=== PATIENT | male | born 1975 | race Caucasian/White ===

== ENCOUNTER 2022-11-22 15:25 | Emergency (ER) | payer OTHER ==
[2022-11-22 15:32] VITALS: TEMP 97.2
[2022-11-22 16:02] LABS: Glucose,Whole Blood 471 mg/dL (70-110)
[2022-11-22 16:20] LABS: Basophils % (A) 0 %; Eosinophils # (A) 0.2 k/uL (0-0.7); Eosinophils % (A) 2 %; HCT 42.3 % (39.0-53.0); HGB 14.2 gm/dL (13.0-17.5); Lymphocytes # (A) 1.8 k/uL (1.0-4.8); Lymphocytes % (A) 16 %; MCHC 33.6 g/dL (31.0-37.0); MCV 83.3 fL (80.0-100.0); Mean Platelet Volume 7.3; Monocytes # (A) 0.5 k/uL (0-1.0); Monocytes % (A) 5 %; Neutrophils # (A) 8.3 k/uL (1.3-7.7); Neutrophils % (A) 76 %; Platelet Count 276 k/uL (150-450); RBC 5.08 m/uL (4.30-5.90); RDW 13.4 % (11.5-15.5); WBC 10.9 k/uL (3.8-10.6)
--- NOTE | 2022-11-22 16:29 | XR ---
EXAMINATION TYPE: XR chest 2V DATE OF EXAM: 11/22/2022 COMPARISON: None HISTORY: 47 year-old male chest pain TECHNIQUE: PA and lateral views FINDINGS: The cardiomediastinal silhouette, aorta, and pulmonary vasculature are within normal limits. Mild hyp erinflation. Otherwise, lungs and pleural spaces are clear. IMPRESSION: Mild hyperinflation may relate to depth of inspiration or underlying emphysema. Otherwise, no acute c ardiopulmonary process.
[2022-11-22 16:35] LABS: ALT 12 U/L (4-49); AST 14 U/L (17-59); African American GFR (CKD) >90 (>60 ml/min/1.73 sqM); Albumin 2.8 g/dL (3.5-5.0); Alkaline Phosphatase 142 U/L (38-126); Anion Gap 2 mmol/L; Blood Urea Nitrogen 14 mg/dL (9-20); Calcium 8.2 mg/dL (8.4-10.2); Carbon Dioxide 34 mmol/L (22-30); Chloride 94 mmol/L (98-107); Glucose 406 mg/dL (74-99); Lipase 75 U/L (23-300); Magnesium 1.8 mg/dL (1.6-2.3); Non-African American GFR(CKD) >90 (>60 ml/min/1.73 sqM); Potassium 3.4 mmol/L (3.5-5.1); Sodium 130 mmol/L (137-145); Total Bilirubin 0.4 mg/dL (0.2-1.3); Total Protein 5.6 g/dL (6.3-8.2)
--- NOTE | 2022-11-22 16:36 | ED ---
General Adult HPI - General Chief complaint: Recheck/Abnormal Lab/Rx Stated complaint: Hyperglycemia,HTN,Sent by PCP Time Seen by Provider: 11/22/22 15:32 Source: patient Mode of arrival: ambulatory Limitations: no limitations - History of Present Illness Initial comments: This is a 47-year-old male with a past medical history including diabetes and hypertension presented to the emergency department for high blood sugars and blood pressure control issues. The patient was sent in by his private care physician office. The patient stated that he has been having "circumstances that do not allow him to have the best diet" and stated that his sugars have been out of control lately. It is reported the patient's sugars were over 400 in the office and he was advised to go to the emergency department for laboratory workup and fluids. The patient however denied any acute pain or distress and denied any nausea and vomiting. The patient was resting in bed comfortably. - Related Data Home Medications Medication Instructions Recorded Confirmed Albuterol Inhaler [Ventolin Hfa 2 puff INHALATION RT-Q6H PRN 11/22/22 11/22/22 Inhaler] Atorvastatin [Lipitor] 20 mg PO DAILY 11/22/22 11/22/22 Ergocalciferol (Vitamin D2) 1,250 mcg PO LOPEZ 11/22/22 11/22/22 [Drisdol (50,000 Iu)] Glimepiride [Amaryl] 4 mg PO DAILY 11/22/22 11/22/22 Insulin Glargine,Hum.rec.anlog 20 units SQ HS 11/22/22 11/22/22 [Lantus Solostar Pen] amLODIPine [Norvasc] 10 mg PO DAILY 11/22/22 11/22/22 lisinopriL 30 mg PO DAILY 11/22/22 11/22/22 metFORMIN HCL 1,000 mg PO BID 11/22/22 11/22/22 Allergies Allergy/AdvReac Type Severity Reaction Status Date / Time dulaglutide [From [facility]] Allergy Unknown Verified 11/22/22 16:43 Review of Systems ROS Statement: Those systems with pertinent positive or pertinent negative responses have been documented in the HPI. ROS Other: All systems not noted in ROS Statement are negative. Past Medical History Past Medical History: Diabetes Mellitus, Hypertension Additional Past Medical History / Comment(s): High cholestrol History of Any Multi-Drug Resistant Organisms: None Reported Additional Past Surgical History / Comment(s): oral surgery x 2. eye surgery x 2 Past Psychological History: No Psychological Hx Reported Smoking Status: Current every day smoker Past Alcohol Use History: None Reported Past Drug Use History: None Reported General Exam Limitations: no limitations General appearance: alert, in no apparent distress, obese Head exam: Present: atraumatic, normocephalic, normal inspection Eye exam: Present: normal appearance, PERRL Pupils: Present: normal accommodation ENT exam: Present: normal exam, normal oropharynx, mucous membranes moist Neck exam: Present: normal inspection, full ROM Respiratory exam: Present: normal lung sounds bilaterally Cardiovascular Exam: Present: regular rate, normal rhythm, normal heart sounds GI/Abdominal exam: Present: soft, normal bowel sounds Extremities exam: Present: normal inspection, full ROM, normal capillary refill Back exam: Present: normal inspection, full ROM Neurological exam: Present: alert, oriented X3, CN II-XII intact Psychiatric exam: Present: normal affect, normal mood Skin exam: Present: warm, dry Course Vital Signs 11/22/22 11/22/22 11/22/22 15:26 18:00 19:00 Temperature 97.2 F L Pulse Rate 93 Respiratory 18 18 Rate Blood Pressure 180/108 187/124 184/112 O2 Sat by Pulse 98 98 Oximetry 11/22/22 20:16 Temperature Pulse Rate 91 Respiratory 15 Rate Blood Pressure 166/78 O2 Sat by Pulse 99 Oximetry EKG Findings - EKG Comments: EKG Findings:: An EKG was obtained and was interpreted by myself showing a rate of 90, TN interval 130, QRS duration 96 and QTC of 44. This EKG showed a normal sinus rhythm with no ST segment elevation or depression noted. Medical Decision Making - Medical Decision Making Was pt. sent in by a medical professional or institution (, PA, BARREL INSPECTOR, urgent care, hospital, or fpc...) When possible be specific @ -Yes, patient's PCP Did you speak to anyone other than the patient for history (EMS, parent, family, police, friend...)? What history was obtained from this source @ -No Did you review nursing and triage notes (agree or disagree)? Why? @ -I reviewed and agree with nursing and triage notes Were old charts reviewed (outside hosp., previous admission, EMS record, old EKG, old radiological studies, urgent care reports/EKG's, fpc records)? Report findings @ -No old charts were reviewed Differential Diagnosis (chest pain, altered mental status, abdominal pain women, abdominal pain men, vaginal bleeding, weakness, fever, dyspnea, syncope, head ache, dizziness, GI bleed, back pain, seizure, CVA, palpatations, mental health)? @ -Hyperglycemia, HHS, acute coronary syndrome, hypertension, EKG interpreted by me (3pts min.). @ -As above X-rays interpreted by me (1pt min.). @ -Chest x-ray was obtained and was interpreted by myself showing no acute process. CT interpreted by me (1pt min.). @ -None done U/S interpreted by me (1pt. min.). @ -None done What testing was considered but not performed or refused? (CT, X-rays, U/S, labs)? Why? @ -None What meds were considered but not given or refused? Why? @ -None Did you discuss the management of the patient with other professionals (professionals i.e. , PA, BARREL INSPECTOR, lab, RT, psych nurse, perinatal social worker, correctional treatment specialist, teacher, medical officer psychiatry, showcase trimmer)? Give summary @ -No Was smoking cessation discussed for >3mins.? @ -Yes Was critical care preformed (if so, how long)? @ -No Were there social determinants of health that impacted care today? How? (Homelessness, low income, unemployed, alcoholism, drug addiction, transportation, low edu. Level, literacy, decrease access to med. care, senior care, rehab)? @ -No Was there de-escalation of care discussed even if they declined (Discuss DNR or withdrawal of care, Hospice)? DNR status @ -No What co-morbidities impacted this encounter? (DM, HTN, Smoking, COPD, CAD, Cancer, CVA, ARF, Chemo, Hep., AIDS, mental health diagnosis, sleep apnea, morbid obesity)? @ -Hypertension, diabetes Was patient admitted / discharged? Hospital course, mention meds given and route, prescriptions, significant lab abnormalities, going to OR and other pertinent info. @ -The patient was seen and evaluated emergency department. Physical exam, the patient was resting in bed without any acute distress. Vital signs were stable. Laboratory workup did show hyperglycemia and hypertension. The patient received 2 L of normal saline fluid and the glucose did decrease to 350. The patient stated that he didn't want to leave and did not want to wait any fur ther. The patient also received labetalol and his pressure did decrease. The patient was advised to follow-up with his primary care physician who stated that they would be calling him in the morning to follow-up. The patient was advised to try and change his diet to the best of his abilities in order to help his blood sugar. The patient was also advised report back to the emergency department if his pain or symptoms became acutely worse. The patient was agreeable to this and was discharged home in stable condition. The patient's hypo-a tree meal was secondary to the patient's hyperglycemia and this was corrected however no repeat laboratory workup was obtained this time as the patient stated that he was ready to go home and did not want to wait any further. Undiagnosed new problem with uncertain prognosis? @ -No Drug Therapy requiring intensive monitoring for toxicity (Heparin, Nitro, Insulin, Cardizem)? @ -No Were any procedures done? @ -No Diagnosis/symptom? @ -Uncontrolled hypertension Acute, or Chronic, or Acute on Chronic? @ -Acute on chronic Uncomplicated (without systemic symptoms) or Complicated (systemic symptoms)? @ -Uncomplicated Side effects of treatment? @ -No Exacerbation, Progression, or Severe Exacerbation? @ -No Poses a threat to life or bodily function? How? (Chest pain, [place], [place], pneumonia, PE, COPD, DKA, ARF, appy, cholecystitis, CVA, Diverticulitis, Homicidal, Suicidal, threat to staff... and all critical care pts) @ -No Diagnosis/symptom? @ -Hyperglycemia and diabetes Acute, or Chronic, or Acute on Chronic? @ -Acute on chronic Uncomplicated (without systemic symptoms) or Complicated (systemic symptoms)? @ -Uncomplicated Side effects of treatment? @ -none Exacerbation, Progression, or Severe Exacerbation] @ -no Poses a threat to life or bodily function? @ -no - Lab Data Result diagrams: 11/22/22 16:09 11/22/22 16:09 Lab Results 11/22/22 11/22/22 11/22/22 Range/Units 15:50 16:09 16:09 WBC 10.9 H (3.8-10.6) k/uL RBC 5.08 (4.30-5.90) m/uL Hgb 14.2 (13.0-17.5) gm/dL Hct 42.3 (39.0-53.0) % MCV 83.3 (80.0-100.0) fL MCH 28.0 (25.0-35.0) pg MCHC 33.6 (31.0-37.0) g/dL RDW 13.4 (11.5-15.5) % Plt Count 276 (150-450) k/uL MPV 7.3 Neutrophils % 76 % Lymphocytes % 16 % Monocytes % 5 % Eosinophils % 2 % Basophils % 0 % Neutrophils # 8.3 H (1.3-7.7) k/uL Lymphocytes # 1.8 (1.0-4.8) k/uL Monocytes # 0.5 (0-1.0) k/uL Eosinophils # 0.2 (0-0.7) k/uL Basophils # 0.0 (0-0.2) k/uL Sodium 130 L (137-145) mmol/L Potassium 3.4 L (3.5-5.1) mmol/L Chloride 94 L (98-107) mmol/L Carbon Dioxide 34 H (22-30) mmol/L Anion Gap 2 mmol/L BUN 14 (9-20) mg/dL Creatinine 0.71 (0.66-1.25) mg/dL Est GFR (CKD-EPI)AfAm >90 (>60 ml/min/1.73 sqM) Est GFR (CKD-EPI)NonAf >90 (>60 ml/min/1.73 sqM) Glucose 406 H (74-99) mg/dL POC Glucose (mg/dL) 471 H (70-110) mg/dL POC Glu [employer] Salesperson ID Evelyn Clemons Calcium 8.2 L (8.4-10.2) mg/dL Magnesium 1.8 (1.6-2.3) mg/dL Total Bilirubin 0.4 (0.2-1.3) mg/dL AST 14 L (17-59) U/L ALT 12 (4-49) U/L Alkaline Phosphatase 142 H (38-126) U/L Troponin I (0.000-0.034) ng/mL NT-Pro-B Natriuret Pep pg/mL Total Protein 5.6 L (6.3-8.2) g/dL Albumin 2.8 L (3.5-5.0) g/dL Lipase 75 (23-300) U/L Urine Color Urine Appearance (Clear) Urine pH (5.0-8.0) Ur Specific [place] (1.001-1.035) Urine Protein (Negative) Urine Glucose (UA) (Negative) Urine Ketones (Negative) Urine Blood (Negative) Urine Nitrite (Negative) Urine Bilirubin (Negative) Urine Urobilinogen (<2.0) mg/dL Ur Leukocyte Esterase (Negative) Urine RBC (0-5) /hpf Urine WBC (0-5) /hpf Influenza Type A (PCR) (Not Detectd) Influenza Type B (PCR) (Not Detectd) RSV (PCR) (Not Detectd) SARS-CoV-2 (PCR) (Not Detectd) 11/22/22 11/22/22 11/22/22 Range/Units 16:09 16:09 16:09 WBC (3.8-10.6) k/uL RBC (4.30-5.90) m/uL Hgb (13.0-17.5) gm/dL Hct (39.0-53.0) % MCV (80.0-100.0) fL MCH (25.0-35.0) pg MCHC (31.0-37.0) g/dL RDW (11.5-15.5) % Plt Count (150-450) k/uL MPV Neutrophils % % Lymphocytes % % Monocytes % % Eosinophils % % Basophils % % Neutrophils # (1.3-7.7) k/uL Lymphocytes # (1.0-4.8) k/uL Monocytes # (0-1.0) k/uL Eosinophils # (0-0.7) k/uL Basophils # (0-0.2) k/uL Sodium (137-145) mmol/L Potassium (3.5-5.1) mmol/L Chloride (98-107) mmol/L Carbon Dioxide (22-30) mmol/L Anion Gap mmol/L BUN (9-20) mg/dL Creatinine (0.66-1.25) mg/dL Est GFR (CKD-EPI)AfAm (>60 ml/min/1.73 sqM) Est GFR (CKD-EPI)NonAf (>60 ml/min/1.73 sqM) Glucose (74-99) mg/dL POC Glucose (mg/dL) (70-110) mg/dL POC Glu [employer] Salesperson ID Calcium (8.4-10.2) mg/dL Magnesium (1.6-2.3) mg/dL Total Bilirubin (0.2-1.3) mg/dL AST (17-59) U/L ALT (4-49) U/L Alkaline Phosphatase (38-126) U/L Troponin I 0.029 (0.000-0.034) ng/mL NT-Pro-B Natriuret Pep 1130 pg/mL Total Protein (6.3-8.2) g/dL Albumin (3.5-5.0) g/dL Lipase (23-300) U/L Urine Color Urine Appearance (Clear) Urine pH (5.0-8.0) Ur Specific [place] (1.001-1.035) Urine Protein (Negative) Urine Glucose (UA) (Negative) Urine Ketones (Negative) Urine Blood (Negative) Urine Nitrite (Negative) Urine Bilirubin (Negative) Urine Urobilinogen (<2.0) mg/dL Ur Leukocyte Esterase (Negative) Urine RBC (0-5) /hpf Urine WBC (0-5) /hpf Influenza Type A (PCR) Not Detected (Not Detectd) Influenza Type B (PCR) Not Detected (Not Detectd) RSV (PCR) Not Detected (Not Detectd) SARS-CoV-2 (PCR) Not Detected (Not Detectd) 11/22/22 11/22/22 11/22/22 Range/Units 17:40 17:57 20:06 WBC (3.8-10.6) k/uL RBC (4.30-5.90) m/uL Hgb (13.0-17.5) gm/dL Hct (39.0-53.0) % MCV (80.0-100.0) fL MCH (25.0-35.0) pg MCHC (31.0-37.0) g/dL RDW (11.5-15.5) % Plt Count (150-450) k/uL MPV Neutrophils % % Lymphocytes % % Monocytes % % Eosinophils % % Basophils % % Neutrophils # (1.3-7.7) k/uL Lymphocytes # (1.0-4.8) k/uL Monocytes # (0-1.0) k/uL Eosinophils # (0-0.7) k/uL Basophils # (0-0.2) k/uL Sodium (137-145) mmol/L Potassium (3.5-5.1) mmol/L Chloride (98-107) mmol/L Carbon Dioxide (22-30) mmol/L Anion Gap mmol/L BUN (9-20) mg/dL Creatinine (0.66-1.25) mg/dL Est GFR (CKD-EPI)AfAm (>60 ml/min/1.73 sqM) Est GFR (CKD-EPI)NonAf (>60 ml/min/1.73 sqM) Glucose (74-99) mg/dL POC Glucose (mg/dL) 337 H 354 H (70-110) mg/dL POC Glu [employer] Salesperson ID Evelyn Clemons Matthew Calcium (8.4-10.2) mg/dL Magnesium (1.6-2.3) mg/dL Total Bilirubin (0.2-1.3) mg/dL AST (17-59) U/L ALT (4-49) U/L Alkaline Phosphatase (38-126) U/L Troponin I (0.000-0.034) ng/mL NT-Pro-B Natriuret Pep pg/mL Total Protein (6.3-8.2) g/dL Albumin (3.5-5.0) g/dL Lipase (23-300) U/L Urine Color Light Yellow Urine Appearance Clear (Clear) Urine pH 6.5 (5.0-8.0) Ur Specific [place] 1.033 (1.001-1.035) Urine Protein 3+ H (Negative) Urine Glucose (UA) 4+ H (Negative) Urine Ketones Negative (Negative) Urine Blood Trace H (Negative) Urine Nitrite Negative (Negative) Urine Bilirubin Negative (Negative) Urine Urobilinogen <2.0 (<2.0) mg/dL Ur Leukocyte Esterase Negative (Negative) Urine RBC 3 (0-5) /hpf Urine WBC 3 (0-5) /hpf Influenza Type A (PCR) (Not Detectd) Influenza Type B (PCR) (Not Detectd) RSV (PCR) (Not Detectd) SARS-CoV-2 (PCR) (Not Detectd) Disposition Clinical Impression: Hyperglycemia, Hypertensive urgency Disposition: HOME SELF-CARE Condition: Stable Is patient prescribed a controlled substance at d/c from ED?: No Referrals: Tierra Reeves MD [Primary Care Provider] - 1-2 days Time of Disposition: 20:20
[2022-11-22] MEDS ORDERED: SODIUM CHLORIDE 0.9% 1,000 ML IV ONE ×2 (17:02→18:01)
[2022-11-22 17:58] LABS: Glucose,Whole Blood 337 mg/dL (70-110)
[2022-11-22] MEDS ORDERED: LABETALOL 5 MG/ML VIAL MDV IVP STA (18:01)
[2022-11-22 18:50] LABS: Appearance,Urine Clear (Clear); Bilirubin,Urine Negative (Negative); Blood,Urine Trace (Negative); Color,Urine Light Yellow; Glucose,Urine (UA) 4+ (Negative); Ketones,Urine Negative (Negative); Leukocyte Esterase,Urine Negative (Negative); Nitrite,Urine Negative (Negative); PH, Urine 6.5 (5.0-8.0); Protein,Urine 3+ (Negative); RBC,Urine 3 /hpf (0-5); Specific Gravity,Urine 1.033 (1.001-1.035); Urobilinogen,Urine <2.0 mg/dL (<2.0); WBC,Urine 3 /hpf (0-5)
[2022-11-22 20:09] LABS: Glucose,Whole Blood 354 mg/dL (70-110)
[2022-11-22 20:17] VITALS: BP 166/78; PULSE 91; RESP 15
== END 2022-11-22 20:50 | disposition home or self-care (01) ==
LOC: EC 15:25
DX: E11.65 Type 2 diabetes mellitus with hyperglycemia (principal); I16.0 Hypertensive urgency; F17.200 Nicotine dependence, unspecified, uncomplicated; Z88.8 Allergy status to other drugs, medicaments and biological substances; Z79.4 Long term (current) use of insulin; Z79.84 Long term (current) use of oral hypoglycemic drugs; Z79.899 Other long term (current) drug therapy; Z20.822 Contact with and (suspected) exposure to COVID-19
CPT/HCPCS: 36415; 71046; 80053; 81001; 83690; 83735; 83880; 84484; 85025; 87636; 93005; 96361; 96374; 99285

== ENCOUNTER 2023-02-21 12:27 | Inpatient (IN) | payer MEDICAID, OTHER ==
--- NOTE | 2023-02-21 13:11 | ED ---
Psych HPI - General Chief Complaint: Psychiatric Symptoms Stated Complaint: Mental Health Time Seen by Provider: 02/21/23 12:50 Source: patient, EMS, RN notes reviewed Mode of arrival: EMS - History of Present Illness Initial Comments: 48-year-old male with a history of smoking history of hypertension and high cholesterol who is currently in the [facility] and was found unconscious with a T-shirt wrapped around his neck. He does admit to trying to commit suicide he admits to feeling depressed and wishes someone would just shoot him. He states he is been feeling depressed for a while due to life situations. He states he try to kill himself about a month ago with alcohol and tramadol but this was unsuccessful. He currently is awake alert oriented 4 complains of some mild neck discomfort but otherwise has no complaints at this time. MD Complaint: suicidal ideation, feels depressed, other - Related Data Home Medications Medication Instructions Recorded Confirmed Albuterol Inhaler [Ventolin Hfa 2 puff INHALATION RT-Q6H PRN 11/22/22 02/21/23 Inhaler] Atorvastatin [Lipitor] 20 mg PO DAILY 11/22/22 02/21/23 Ergocalciferol (Vitamin D2) 1,250 mcg PO LOPEZ 11/22/22 02/21/23 [Drisdol (50,000 Iu)] Glimepiride [Amaryl] 4 mg PO DAILY 11/22/22 02/21/23 Insulin Glargine,Hum.rec.anlog 20 units SQ HS 11/22/22 02/21/23 [Lantus Solostar Pen] amLODIPine [Norvasc] 10 mg PO DAILY 11/22/22 02/21/23 lisinopriL 30 mg PO DAILY 11/22/22 02/21/23 metFORMIN HCL 1,000 mg PO BID 11/22/22 02/21/23 Allergies Allergy/AdvReac Type Severity Reaction Status Date / Time dulaglutide [[facility] Allergy Unknown Verified 02/21/23 14:36 Review of Systems ROS Statement: Those systems with pertinent positive or pertinent negative responses have been documented in the HPI. ROS Other: All systems not noted in ROS Statement are negative. Past Medical History Past Medical History: Diabetes Mellitus, Hypertension Additional Past Medical History / Comment(s): High cholestrol History of Any Multi-Drug Resistant Organisms: None Reported Additional Past Surgical History / Comment(s): oral surgery x 2. eye surgery x 2 Past Psychological History: No Psychological Hx Reported Smoking Status: Current every day smoker Past Alcohol Use History: None Reported Past Drug Use History: None Reported General Exam - General Exam Comments Initial Comments: This is a well-developed well-nourished awake alert oriented 4 male Limitations: no limitations General appearance: alert, in no apparent distress Head exam: Present: atraumatic, normocephalic, normal inspection Eye exam: Present: normal appearance, PERRL, EOMI. Absent: scleral icterus, conjunctival injection, periorbital swelling ENT exam: Present: normal exam, mucous membranes moist Neck exam: Present: normal inspection, full ROM, other (ALLERGY or bruits no overt tenderness on palpation no midline tenderness). Absent: tenderness, meningismus, lymphadenopathy Respiratory exam: Present: normal lung sounds bilaterally. Absent: respiratory distress, wheezes, rales, rhonchi, stridor Cardiovascular Exam: Present: regular rate, normal rhythm, normal heart sounds. Absent: systolic murmur, diastolic murmur, rubs, gallop, clicks GI/Abdominal exam: Present: soft, normal bowel sounds. Absent: distended, tenderness, guarding, rebound, rigid Extremities exam: Present: normal inspection, full ROM, normal capillary refill. Absent: tenderness, pedal edema, joint swelling, calf tenderness Back exam: Present: normal inspection Neurological exam: Present: alert, oriented X3, CN II-XII intact Psychiatric exam: Present: depressed, flat affect, suicidal ideation Skin exam: Present: warm, dry, intact, normal color. Absent: rash Course Vital Signs 02/21/23 12:45 Temperature 98.5 F Pulse Rate 100 Respiratory 16 Rate Blood Pressure 174/97 O2 Sat by Pulse 92 L Oximetry Medical Decision Making - Medical Decision Making Patient presents with suicidal thoughts and ideation and attempt to strangle himself with his shirt. He does demonstrate in addition to this hypokalemia and hyper glycemia. He admitted for inpatient evaluation and treatment. Covid 19 teslas been ordered. Patient was given a dose of insulin as well as a dose of potassium. Further medications can be ordered by consultation of medicine on the floor.Was pt. sent in by a medical professional or institution (, PA, SHIPPING [employer] RECEIVING [employer]IGHER, urgent care, hospital, or [place] health care facility...) When possible be specific @ -No Did you speak to anyone other than the patient for history (EMS, parent, family, police, friend...)? What history was obtained from this source @ -Paramedics Did you review nursing and triage notes (agree or disagree)? Why? @ -I reviewed and agree with nursing and triage notes Were old charts reviewed (outside hosp., previous admission, EMS record, old EKG, old radiological studies, urgent care reports/EKG's, [place] health care facility records)? Report findings @ -No old charts were reviewed Differential Diagnosis (chest pain, altered mental status, abdominal pain women, abdominal pain men, vaginal bleeding, weakness, fever, dyspnea, syncope, headache, dizziness, GI bleed, back pain, seizure, CVA, palpatations, mental health, musculoskeletal)? @ -Depression, suicidal ideation, suicide attempt, attempted strangulation EKG interpreted by me (3pts min.). @ - X-rays interpreted by me (1pt min.). @ -Imaging interpreted by me negative with respect to the soft tissue neck and chest x-ray CT interpreted by me (1pt min.). @ -None done U/S interpreted by me (1pt. min.). @ -None done What testing was considered but not performed or refused? (CT, X-rays, U/S, labs)? Why? @ -None What meds were considered but not given or refused? Why? @ -None Did you discuss the management of the patient with other professionals (professionals i.e. , PA, SHIPPING AND RECEIVING WEIGHER, lab, RT, psych nurse, 7th grade social studies teacher, size changer, teacher, upscale security officer, oil field caser)? Give summary @ -EPS service Was smoking cessation discussed for >3mins.? @ -No Was critical care preformed (if so, how long)? @ -No Were there social determinants of health that impacted care today? How? (Homelessness, low income, unemployed, alcoholism, drug addiction, transportation, low edu. Level, literacy, decrease access to med. care, fpc, rehab)? @ -No Was there de-escalation of care discussed even if they declined (Discuss DNR or withdrawal of care, Hospice)? DNR status @ -No What co-morbidities impacted this encounter? (DM, HTN, Smoking, COPD, CAD, Cancer, CVA, ARF, Chemo, Hep., AIDS, mental health diagnosis, sleep apnea, morbid obesity)? @ -Diabetes Was patient admitted / discharged? Hospital course, mention meds given and route, prescriptions, significant lab abnormalities, going to OR and other pertinent info. @ -hospital course patient was admitted to the psychiatric unit for inpatient evaluation treatment of suicidal attempt suicidal thought depression Undiagnosed new problem with uncertain prognosis? @ -No Drug Therapy requiring intensive monitoring for toxicity (Heparin, Nitro, Insulin, Cardizem)? @ -No Were any procedures done? @ -No Diagnosis/symptom? @ -Major depression, suicidal ideation, suicide attempt, attempted strangulation, hyperglycemia, acute anemia Acute, or Chronic, or Acute on Chronic? @ -Acute Uncomplicated (without systemic symptoms) or Complicated (systemic symptoms)? @ -default Side effects of treatment? @ -No Exacerbation, Progression, or Severe Exacerbation? @ -No Poses a threat to life or bodily function? How? (Chest pain, USA, VA, pneumonia, PE, COPD, DKA, ARF, appy, cholecystitis, CVA, Diverticulitis, Homicidal, Suicidal, threat to staff... and all critical care pts) @ -Depression, suicidal ideation and attempt - Lab Data Result diagrams: 02/21/23 14:03 02/21/23 13:55 Lab Results 02/21/23 02/21/23 02/21/23 Range/Units 13:55 13:55 14:03 WBC 12.1 H (3.8-10.6) k/uL RBC 5.25 (4.30-5.90) m/uL Hgb 15.5 (13.0-17.5) gm/dL Hct 43.1 (39.0-53.0) % MCV 82.2 (80.0-100.0) fL MCH 29.6 (25.0-35.0) pg MCHC 36.0 (31.0-37.0) g/dL RDW 13.2 (11.5-15.5) % Plt Count 290 (150-450) k/uL MPV 7.4 Neutrophils % 86 % Lymphocytes % 9 % Monocytes % 4 % Eosinophils % 1 % Basophils % 0 % Neutrophils # 10.3 H (1.3-7.7) k/uL Lymphocytes # 1.1 (1.0-4.8) k/uL Monocytes # 0.5 (0-1.0) k/uL Eosinophils # 0.1 (0-0.7) k/uL Basophils # 0.0 (0-0.2) k/uL Sodium 130 L (137-145) mmol/L Potassium 3.3 L (3.5-5.1) mmol/L Chloride 93 L (98-107) mmol/L Carbon Dioxide 31 H (22-30) mmol/L Anion Gap 6 mmol/L BUN 11 (9-20) mg/dL Creatinine 0.69 (0.66-1.25) mg/dL Est GFR (CKD-EPI)AfAm >90 (>60 ml/min/1.73 sqM) Est GFR (CKD-EPI)NonAf >90 (>60 ml/min/1.73 sqM) Glucose 323 H (74-99) mg/dL POC Glucose (mg/dL) (70-110) mg/dL POC Glu Earth Auger Operator ID Calcium 8.6 (8.4-10.2) mg/dL Total Bilirubin 0.5 (0.2-1.3) mg/dL AST 17 (17-59) U/L ALT 14 (4-49) U/L Alkaline Phosphatase 157 H (38-126) U/L Creatine Kinase 64 (55-170) U/L Total Protein 5.8 L (6.3-8.2) g/dL Albumin 3.0 L (3.5-5.0) g/dL TSH 0.329 L (0.465-4.680) mIU/L Free T4 1.58 (0.78-2.19) ng/dL Urine Opiates Screen Not Detected (NotDetected) Ur Oxycodone Screen Not Detected (NotDetected) Urine Methadone Screen Not Detected (NotDetected) Ur Propoxyphene Screen Not Detected (NotDetected) Ur Barbiturates Screen Not Detected (NotDetected) U Tricyclic Antidepress Not Detected (NotDetected) Ur Phencyclidine Scrn Not Detected (NotDetected) Ur Amphetamines Screen Not Detected (NotDetected) U Methamphetamines Scrn Not Detected (NotDetected) U Benzodiazepines Scrn Not Detected (NotDetected) Urine Cocaine Screen Not Detected (NotDetected) U Marijuana (THC) Screen Detected H (NotDetected) Serum Alcohol <10 mg/dL 02/21/23 Range/Units 18:49 WBC (3.8-10.6) k/uL RBC (4.30-5.90) m/uL Hgb (13.0-17.5) gm/dL Hct (39.0-53.0) % MCV (80.0-100.0) fL MCH (25.0-35.0) pg MCHC (31.0-37.0) g/dL RDW (11.5-15.5) % Plt Count (150-450) k/uL MPV Neutrophils % % Lymphocytes % % Monocytes % % Eosinophils % % Basophils % % Neutrophils # (1.3-7.7) k/uL Lymphocytes # (1.0-4.8) k/uL Monocytes # (0-1.0) k/uL Eosinophils # (0-0.7) k/uL Basophils # (0-0.2) k/uL Sodium (137-145) mmol/L Potassium (3.5-5.1) mmol/L Chloride (98-107) mmol/L Carbon Dioxide (22-30) mmol/L Anion Gap mmol/L BUN (9-20) mg/dL Creatinine (0.66-1.25) mg/dL Est GFR (CKD-EPI)AfAm (>60 ml/min/1.73 sqM) Est GFR (CKD-EPI)NonAf (>60 ml/min/1.73 sqM) Glucose (74-99) mg/dL POC Glucose (mg/dL) 456 H (70-110) mg/dL POC Glu Earth Auger Operator ID Anita Jeff Calcium (8.4-10.2) mg/dL Total Bilirubin (0.2-1.3) mg/dL AST (17-59) U/L ALT (4-49) U/L Alkaline Phosphatase (38-126) U/L Creatine Kinase (55-170) U/L Total Protein (6.3-8.2) g/dL Albumin (3.5-5.0) g/dL TSH (0.465-4.680) mIU/L Free T4 (0.78-2.19) ng/dL Urine Opiates Screen (NotDetected) Ur Oxycodone Screen (NotDetected) Urine Methadone Screen (NotDetected) Ur Propoxyphene Screen (NotDetected) Ur Barbiturates Screen (NotDetected) U Tricyclic Antidepress (NotDetected) Ur Phencyclidine Scrn (NotDetected) Ur Amphetamines Screen (NotDetected) U Methamphetamines Scrn (NotDetected) U Benzodiazepines Scrn (NotDetected) Urine Cocaine Screen (NotDetected) U Marijuana (THC) Screen (NotDetected) Serum Alcohol mg/dL Disposition Clinical Impression: Depression, Suicidal ideation, Hypokalemia, Hyperglycemia due to diabetes mellitus, Strangulation or suffocation Disposition: TRANSFER TO PSYCH HOSP/UNIT Condition: Stable Referrals: None,Stated [Primary Care Provider] - 1-2 days Decision Date: 02/21/23 Decision Time: 19:04
[2023-02-21 14:08] LABS: Basophils % (A) 0 %; Eosinophils # (A) 0.1 k/uL (0-0.7); Eosinophils % (A) 1 %; HCT 43.1 % (39.0-53.0); HGB 15.5 gm/dL (13.0-17.5); Lymphocytes # (A) 1.1 k/uL (1.0-4.8); Lymphocytes % (A) 9 %; MCH 29.6 pg (25.0-35.0); MCV 82.2 fL (80.0-100.0); Mean Platelet Volume 7.4; Monocytes # (A) 0.5 k/uL (0-1.0); Monocytes % (A) 4 %; Neutrophils # (A) 10.3 k/uL (1.3-7.7); Neutrophils % (A) 86 %; Platelet Count 290 k/uL (150-450); RBC 5.25 m/uL (4.30-5.90); RDW 13.2 % (11.5-15.5); WBC 12.1 k/uL (3.8-10.6)
[2023-02-21 14:27] LABS: ALT 14 U/L (4-49); AST 17 U/L (17-59); African American GFR (CKD) >90 (>60 ml/min/1.73 sqM); Alcohol <10 mg/dL; Alkaline Phosphatase 157 U/L (38-126); Anion Gap 6 mmol/L; Blood Urea Nitrogen 11 mg/dL (9-20); Calcium 8.6 mg/dL (8.4-10.2); Carbon Dioxide 31 mmol/L (22-30); Chloride 93 mmol/L (98-107); Creatine Kinase 64 U/L (55-170); Glucose 323 mg/dL (74-99); Non-African American GFR(CKD) >90 (>60 ml/min/1.73 sqM); Potassium 3.3 mmol/L (3.5-5.1); Sodium 130 mmol/L (137-145); Total Bilirubin 0.5 mg/dL (0.2-1.3); Total Protein 5.8 g/dL (6.3-8.2)
[2023-02-21 14:36] LABS: Amphetamine Screen,Urine Not Detected (NotDetected); Barbiturate Screen,Urine Not Detected (NotDetected); Benzodiazepines Screen,Urine Not Detected (NotDetected); Cocaine Screen,Urine Not Detected (NotDetected); Methadone Screen, Urine Not Detected (NotDetected); Opiate Screen,Urine Not Detected (NotDetected); Oxycodone Screen, Urine Not Detected (NotDetected); Phencyclidine Screen,Urine Not Detected (NotDetected); Tricyclic Antidepressant,Urine Not Detected (NotDetected); Urn Cannabinoid Scrn Detected (NotDetected)
--- NOTE | 2023-02-21 15:05 | XR ---
EXAMINATION TYPE: XR chest 2V DATE OF EXAM: 02/21/2023 2:55 PM COMPARISON: Chest radiographs from 11/22/2022. TECHNIQUE: XR chest 2V Frontal and lateral views of the chest. CLINICAL INDICATION:Male, 48 years old with history of Attempted strangulation; FINDINGS: Lungs/Pleura: There is no evidence of pleural effusion, focal consolidation, or pneumothorax. Pulmonary vascularity: Unremarkable. Heart/mediastinum: Cardiomediastinal silhouette is unremarkable. Musculoskeletal: No acute osseous pathology. IMPRESSION: No acute cardiopulmonary disease/process.
--- NOTE | 2023-02-21 15:06 | XR ---
EXAMINATION TYPE: XR soft tissue neck DATE OF EXAM: 02/21/2023 2:55 PM INDICATION: Patient age:Male; 48 years old; Reason for study: Strangulation; PH[facility]. COMPARISON: None TECHNIQUE: The soft tissues of the neck were imaged in 2 views. FINDINGS: The prevertebral soft tissues are unremarkable. There is no evidence of mass effect or trac heal deviation. No acute osseous abnormality demonstrated. No evidence of subglottic narrowing. Str aightening of the cervical spine which may be due to patient position versus muscle spasm. No radiopa que foreign body. IMPRESSION: No significant abnormality identified within the soft tissues of the neck.
[2023-02-21 15:31] LABS: T4, Free (Free Thyroxine) 1.58 ng/dL (0.78-2.19)
[2023-02-21] MEDS ORDERED: POTASSIUM CHLORIDE ER 20 MEQ TAB.ER PO STA (18:36)
[2023-02-21 18:51] LABS: Glucose,Whole Blood 456 mg/dL (70-110)
[2023-02-21] MEDS ORDERED: INSULIN ASPART (NovoLOG) 100 UNIT/ML VIAL SQ ONE (18:51)
[2023-02-21 21:59] LABS: Glucose,Whole Blood 187 mg/dL (70-110)
[2023-02-22] MEDS ORDERED: ALBUTEROL INHALER 60 PUFF/8 GM INHALER (MHU) INHALATION PRN (02:21)
[2023-02-22] MEDS ORDERED: ACETAMINOPHEN TAB 325 MG TAB PO PRN (02:22)
[2023-02-22] MEDS ORDERED: MAG HYDROX/AL HYDROX/SIMETH 30 ML CUP PO PRN (02:22)
[2023-02-22] MEDS ORDERED: MAGNESIUM HYDROXIDE 2,400 MG/10 ML CUP PO PRN (02:22)
[2023-02-22] MEDS ORDERED: LORazepam 1 MG TAB PO PRN (02:22)
[2023-02-22] MEDS ORDERED: HALOPERIDOL LACTATE 5 MG/ML 1 ML VIAL IM PRN (02:22)
[2023-02-22 07:46] LABS: Glucose,Whole Blood 352 mg/dL (70-110)
[2023-02-22] MEDS: INSULIN ASPART (NovoLOG) 100 UNIT/ML VIAL SQ SCH ×4 (08:23→20:27)
[2023-02-22] MEDS: NICOTINE 14MG/24HR PATCH TRANSDERM SCH (09:26)
[2023-02-22] MEDS: metFORMIN 500 MG TAB PO SCH ×2 (09:27→21:23)
[2023-02-22] MEDS: ATORVASTATIN 20 MG TAB PO SCH (09:27)
[2023-02-22] MEDS: lisinopriL 10 MG TAB PO SCH (09:27)
[2023-02-22] MEDS: amLODIPine 10 MG TAB PO SCH (09:28)
[2023-02-22] MEDS: GLIMEPIRIDE 4 MG TAB PO SCH (09:28)
[2023-02-22] MEDS ORDERED: SERTRALINE 50 MG TAB PO STA (11:13)
[2023-02-22 12:59] LABS: Glucose,Whole Blood 177 mg/dL (70-110)
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
[2023-02-22 17:54] LABS: Glucose,Whole Blood 151 mg/dL (70-110)
[2023-02-22 19:48] LABS: Glucose,Whole Blood 187 mg/dL (70-110)
[2023-02-22] MEDS ORDERED: LOPERAMIDE 2 MG CAP PO PRN (20:09)
[2023-02-22] MEDS: QUEtiapine 100 MG TAB PO SCH (20:37)
[2023-02-22] MEDS: INSULIN DETEMIR (LEVEMIR) 100 UNIT/ML SYR SQ SCH (20:37)
--- NOTE | 2023-02-23 00:35 | P.PN ---
Progress Note - Text Progress Note Date: 02/22/23 patient refused medical evaluation
[2023-02-23 08:00] LABS: Glucose,Whole Blood 92 mg/dL (70-110)
[2023-02-23] MEDS: INSULIN ASPART (NovoLOG) 100 UNIT/ML VIAL SQ SCH ×4 (08:58→20:07)
[2023-02-23] MEDS: NICOTINE 14MG/24HR PATCH TRANSDERM SCH (09:14)
[2023-02-23] MEDS: metFORMIN 500 MG TAB PO SCH ×2 (09:14→20:06)
[2023-02-23] MEDS: ATORVASTATIN 20 MG TAB PO SCH (09:15)
[2023-02-23] MEDS: amLODIPine 10 MG TAB PO SCH (09:15)
[2023-02-23] MEDS: SERTRALINE 100 MG TAB PO SCH (09:15)
[2023-02-23] MEDS: GLIMEPIRIDE 4 MG TAB PO SCH (09:15)
[2023-02-23] MEDS: lisinopriL 10 MG TAB PO SCH (09:17)
--- NOTE | 2023-02-23 11:34 | P.PN ---
Progress Note - Text Progress Note Date: 02/23/23 Interval History: Patient was seen wandering the hallways and was directable and agreeable to speak with insurance underwriter sales in the office. Patient is hyperverbal and speaks in an overly inclusive manner as he describes circumstances leading to current state of mental health. He externalizes often and says that he has been upset about recent breakups, interpersonal relationship with his ex-, and due to his feelings of loneliness. He says he would be glad if someone at work would put a bullet in his head. He endorses good sleep but says his energy has been low. He says that the last time he can recall being happy was in 2016 when he got . At this time patient endorses suicidal ideation but denies homicidal ideations, intent or plan. Patient denies any auditory, visual hallucinations and denies any paranoia or delusions. Patient denies any side effects from the m edications and has been compliant with meds. Mental Status Exam: General Appearance: Patient appears to be stated age is alert, directable, and attempts to cooperate. Patient appears to have fair hygiene and grooming. Behavior: Patient is seated without any agitated behavior. Eye contact is appropriate. Speech: Patient's speech is hyperverbal. Mood/Affect: Patient reports their mood is "depressed," affect is incongruent and appears to be euthymic. Suicidality/Homicidality: Patient is denying any homicidal ideation. He reports suicidal ideation. Perceptions: Patient denies any visual hallucinations and denies any auditory hallucinations Though content/process: There is no evidence of any delusional thought content and thought process is tangential Memory and concentration: AOX3, grossly intact for the purposes of this session. Judgment and insight: Poor Assessment Adjustment disorder with mixed disturbance of mood and conduct Likely bipolar 2 disorder Posttraumatic stress disorder Tobacco use disorder Plan: -Patient is admitted under voluntary status to MHU for stabilization of psychiatric symptoms and safety. Patient signed adult voluntary form and medication consent and is placed in patient's chart. -Medications : Zoloft increased to 100 mg by mouth daily for depression/anxiety/PTSD Continue Seroquel 100 mg by mouth at bedtime for mood augmentation/stabilization -Ativan and Haldol PRN for agitation/aggression -Patient was counselled on substance abuse and desired to cut back on use -Patient was informed of the risks, benefits and side effects of the medication and patient verbally consented to taking the medications. Patient signed med consent form and was placed in chart. -Internal Medicine consult to perform medical evaluation and physical. -NRT - nicotine patch -SW on board for discharge planning. Encourage patient to participate in groups to work on coping skills.
[2023-02-23] MEDS ORDERED: POTASSIUM CHLORIDE ER 20 MEQ TAB.ER PO STA (11:39)
[2023-02-23 12:05] LABS: Glucose,Whole Blood 146 mg/dL (70-110)
[2023-02-23 17:39] LABS: Glucose,Whole Blood 174 mg/dL (70-110)
[2023-02-23 20:06] LABS: Glucose,Whole Blood 209 mg/dL (70-110)
[2023-02-23] MEDS: QUEtiapine 100 MG TAB PO SCH (20:06)
[2023-02-23] MEDS: INSULIN DETEMIR (LEVEMIR) 100 UNIT/ML SYR SQ SCH (20:08)
--- NOTE | 2023-02-24 00:56 | P.MDCNMH ---
History of Present Illness H&P Date: 02/23/23 Chief Complaint: medical eval 48 year old male with DM and hypertension patient was brought in for psych evaluation by law enforcement , he was found unconscious on the court floor with t-shirt wrapped around his neck , he admits to depression and suicidal ideation , he denies any auditory hallucination patient denies any medical concerns at this time, denies fever, chills, cough, URI, chest pain , SOB, nausea vomiting, abd pain or GI bleeding , denies any changes in urinary or bowel habits. patient admits to tobacco smoking , denies iliicit drugs or alcohol Pertinent positives as noted in HPI. All other systems were reviewed and are negative Constitutional: No acute distress, conversant Eyes: Anicteric sclerae, moist conjunctiva, Pupils equal round reactive to light ENMT: NC/AT Oropharynx clear, no erythema, or exudates Neck: Supple, no masses, or JVD No carotid bruits No thyromegaly Lungs: Clear to auscultation Clear to percussion Normal respiratory effort, no accessory muscle use Cardiovascular: Heart regular in rate and rhythm, No murmurs, gallops, or rubs No peripheral edema Abdominal: Soft Nontender, no guarding, rebound or rigidity Abdomen moving with respiration Normoactive bowel sounds Skin: Normal temperature, tone, texture, turgor Extremities: No digital cyanosis No clubbing Pedal pulses intact and symmetrical Radial pulses intact and symmetrical No calf tenderness Psychiatric: Alert and oriented to person, place and time Neuro Muscles Strength 5/5 in all 4 extremities Sensation to light touch grossly present throughout Cranial nerves II-XII grossly intact Lymphatics: no palpable cervical or supraclavicular lymph nodes Past Medical History Past Medical History: Diabetes Mellitus, Hypertension Additional Past Medical History / Comment(s): High cholestrol History of Any Multi-Drug Resistant Organisms: None Reported Additional Past Surgical History / Comment(s): oral surgery x 2. eye surgery x 2 Past Anesthesia/Blood Transfusion Reactions: No Reported Reaction Past Psychological History: No Psychological Hx Reported Smoking Status: Current every day smoker Past Alcohol Use History: None Reported Past Drug Use History: None Reported Medications and Allergies Home Medications Medication Instructions Recorded Confirmed Type Albuterol Inhaler [Ventolin Hfa 2 puff INHALATION RT-Q6H PRN 11/22/22 02/21/23 History Inhaler] Atorvastatin [Lipitor] 20 mg PO DAILY 11/22/22 02/21/23 History Ergocalciferol (Vitamin D2) 1,250 mcg PO LOPEZ 11/22/22 02/21/23 History [Drisdol (50,000 Iu)] Glimepiride [Amaryl] 4 mg PO DAILY 11/22/22 02/21/23 History Insulin Glargine,Hum.rec.anlog 20 units SQ HS 11/22/22 02/21/23 History [Lantus Solostar Pen] amLODIPine [Norvasc] 10 mg PO DAILY 11/22/22 02/21/23 History lisinopriL 30 mg PO DAILY 11/22/22 02/21/23 History metFORMIN HCL 1,000 mg PO BID 11/22/22 02/21/23 History Allergies Allergy/AdvReac Type Severity Reaction Status Date / Time dulaglutide [From [facility]] Allergy Unknown Verified 02/21/23 14:36 Physical Exam Vitals: Vital Signs Temp Pulse Resp BP 02/23/23 06:28 98.3 F 77 14 185/84 Cranial Nerve Examination - Cranial Nerves Cranial Nerve II- Optic: Intact Cranial Nerve III- Oculomotor: Intact Cranial Nerve IV- Trochlear: Intact Cranial Nerve V- Trigeminal: Intact Cranial Nerve - Abducens: Intact Cranial Nerve VII- Facial: Intact Cranial Nerve VIII- Auditory: Intact Cranial Nerve IX- Glossopharyngeal: Intact Cranial Nerve X- Vagus: Intact Cranial Nerve XI- Accessory: Intact Cranial Nerve XII- Hypoglossal: Intact Results CBC & Chem 7: 02/21/23 14:03 02/21/23 13:55 Labs: Abnormal Lab Results - Last 24 Hours (Table) 02/21/23 02/23/23 02/23/23 Range/Units 14:03 12:04 17:37 POC Glucose (mg/dL) 146 H 174 H (70-110) mg/dL Hemoglobin A1c 11.8 H (0.0-6.0) % 02/23/23 Range/Units 20:04 POC Glucose (mg/dL) 209 H (70-110) mg/dL Hemoglobin A1c (0.0-6.0) % Assessment and Plan Assessment: depression and suicidal ideation , management per psych DM , poorly controlled , A1C >11 resume home regimen amaryl, levemir and metformin insulin sliding scale hypertension resume amlodipine , and lisinopril Hyperlipidemia resume atorvastatin stable from medical stand point at this time thank you for this consultation
[2023-02-24] MEDS: diphenhydrAMINE 25 MG CAP PO PRN ×2 (01:17→20:53)
[2023-02-24 07:56] LABS: Glucose,Whole Blood 123 mg/dL (70-110)
[2023-02-24] MEDS: metFORMIN 500 MG TAB PO SCH ×2 (08:55→20:53)
[2023-02-24] MEDS: lisinopriL 10 MG TAB PO SCH (08:55)
[2023-02-24] MEDS: NICOTINE 14MG/24HR PATCH TRANSDERM SCH (08:55)
[2023-02-24] MEDS: INSULIN ASPART (NovoLOG) 100 UNIT/ML VIAL SQ SCH ×4 (08:55→20:53)
[2023-02-24] MEDS: SERTRALINE 100 MG TAB PO SCH (08:55)
[2023-02-24] MEDS: amLODIPine 10 MG TAB PO SCH (08:56)
[2023-02-24] MEDS: GLIMEPIRIDE 4 MG TAB PO SCH (08:56)
[2023-02-24] MEDS: ATORVASTATIN 20 MG TAB PO SCH (10:26)
[2023-02-24 13:00] LABS: Glucose,Whole Blood 137 mg/dL (70-110)
[2023-02-24 14:02] VITALS: BMI 27.6
--- NOTE | 2023-02-24 16:38 | P.PN ---
Progress Note - Text Progress Note Date: 02/24/23 Interval History: Patient was seen wandering the hallways and was directable and agreeable to speak with advertising writer in the office. Patient is hyperverbal and speaks in an overly inclusive manner as he describes circumstances leading to current state of depression. He says that his mood is "depressed" and that he had poor sleep last night. He was agreeable with an increase in Seroquel. Provided patient with a handout on radical acceptance from [facility]. He states that he sees a therapist outpatient who he says "just listens to me" but later admits that the therapy has been helpful in working him through some difficult situations. At this time patient endorses suicidal ideation but denies homicidal ideations, intent or plan. Patient denies any auditory, visual hallucinations and denies any paranoia or delusions. Patient denies any side effects from the medications (except some trouble with mild restlessness at night) and has been compliant with meds. Mental Status Exam: General Appearance: Patient appears to be stated age is alert, directable, and attempts to cooperate. Patient appears to have fair hygiene and grooming. Behavior: Patient is seated without any agitated behavior. Eye contact is appropriate. Speech: Patient's speech is hyperverbal. Mood/Affect: Patient reports their mood is "depressed," affect is incongruent and appears to be euthymic. Suicidality/Homicidality: Patient is denying any homicidal ideation. He reports suicidal ideation. Perceptions: Patient denies any visual hallucinations and denies any auditory hallucinations Though content/process: There is no evidence of any delusional thought content and thought process is tangential Memory and concentration: AOX3, grossly intact for the purposes of this session. Judgment and insight: Poor Assessment Adjustment disorder with mixed disturbance of mood and conduct Likely Bipolar 2 disorder Posttraumatic stress disorder Tobacco use disorder Cluster B traits Plan: -Patient is admitted under voluntary status to MHU for stabilization of psychiatric symptoms and safety. Patient signed adult voluntary form and medication consent and is placed in patient's chart. -Medications : Decrease Zoloft to 50 mg by mouth daily for depression/anxiety/PTSD as it is likely causing trouble with sleep Increase Seroquel to 150 mg by mouth at bedtime for mood augmentation/stabilization -Ativan and Haldol PRN for agitation/aggression -Patient was counselled on substance abuse and desired to cut back on use -Patient was informed of the risks, benefits and side effects of the medication and patient verbally consented to taking the medications. Patient signed med consent form and was placed in chart. -Internal Medicine consult to perform medical evaluation and physical. -NRT - nicotine patch -SW on board for discharge planning. Encourage patient to participate in groups to work on coping skills.
[2023-02-24 17:50] LABS: Glucose,Whole Blood 179 mg/dL (70-110)
[2023-02-24 20:15] LABS: Glucose,Whole Blood 241 mg/dL (70-110)
[2023-02-24] MEDS: INSULIN DETEMIR (LEVEMIR) 100 UNIT/ML SYR SQ SCH (20:53)
[2023-02-24] MEDS ORDERED: QUEtiapine 50 MG TAB PO SCH (21:00)
[2023-02-25 07:52] LABS: Glucose,Whole Blood 109 mg/dL (70-110)
[2023-02-25] MEDS: INSULIN ASPART (NovoLOG) 100 UNIT/ML VIAL SQ SCH ×4 (07:55→20:02)
[2023-02-25] MEDS ORDERED: ERGOCALCIFEROL 1,250 MCG (50,000 IU) CAPSULE PO SCH (09:00)
[2023-02-25] MEDS: metFORMIN 500 MG TAB PO SCH ×2 (09:08→20:01)
[2023-02-25] MEDS: lisinopriL 10 MG TAB PO SCH (09:08)
[2023-02-25] MEDS: ATORVASTATIN 20 MG TAB PO SCH (09:08)
[2023-02-25] MEDS: amLODIPine 10 MG TAB PO SCH (09:09)
[2023-02-25] MEDS: NICOTINE 14MG/24HR PATCH TRANSDERM SCH (09:09)
[2023-02-25] MEDS: GLIMEPIRIDE 4 MG TAB PO SCH (09:10)
[2023-02-25] MEDS: SERTRALINE 50 MG TAB PO SCH (09:11)
[2023-02-25 12:48] LABS: Glucose,Whole Blood 212 mg/dL (70-110)
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
[2023-02-25 17:25] LABS: Glucose,Whole Blood 163 mg/dL (70-110)
[2023-02-25 20:00] LABS: Glucose,Whole Blood 199 mg/dL (70-110)
[2023-02-25] MEDS: diphenhydrAMINE 25 MG CAP PO PRN (20:01)
[2023-02-25] MEDS: INSULIN DETEMIR (LEVEMIR) 100 UNIT/ML SYR SQ SCH (20:25)
[2023-02-25] MEDS ORDERED: QUEtiapine 200 MG TAB PO SCH (21:00)
[2023-02-26 07:49] LABS: Glucose,Whole Blood 147 mg/dL (70-110)
[2023-02-26] MEDS: INSULIN ASPART (NovoLOG) 100 UNIT/ML VIAL SQ SCH ×4 (07:51→20:39)
[2023-02-26] MEDS: NICOTINE 14MG/24HR PATCH TRANSDERM SCH (08:56)
[2023-02-26] MEDS: GLIMEPIRIDE 4 MG TAB PO SCH (08:57)
[2023-02-26] MEDS: SERTRALINE 50 MG TAB PO SCH (08:57)
[2023-02-26] MEDS: amLODIPine 10 MG TAB PO SCH (08:57)
[2023-02-26] MEDS: ATORVASTATIN 20 MG TAB PO SCH (08:58)
[2023-02-26] MEDS: metFORMIN 500 MG TAB PO SCH ×2 (08:58→20:37)
[2023-02-26] MEDS: lisinopriL 10 MG TAB PO SCH (08:58)
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
[2023-02-26 12:45] LABS: Glucose,Whole Blood 100 mg/dL (70-110)
[2023-02-26 17:44] LABS: Glucose,Whole Blood 206 mg/dL (70-110)
[2023-02-26 20:12] LABS: Glucose,Whole Blood 172 mg/dL (70-110)
[2023-02-26] MEDS: diphenhydrAMINE 25 MG CAP PO PRN (20:37)
[2023-02-26] MEDS: ASENAPINE 5 MG TAB SUBLINGUAL SCH (20:37)
[2023-02-26] MEDS: INSULIN DETEMIR (LEVEMIR) 100 UNIT/ML SYR SQ SCH (20:39)
[2023-02-26 23:23] VITALS: BP 144/73; PULSE 89; RESP 15; TEMP 97.9
[2023-02-27 07:48] LABS: Glucose,Whole Blood 112 mg/dL (70-110)
[2023-02-27] MEDS: lisinopriL 10 MG TAB PO SCH (07:54)
[2023-02-27] MEDS: NICOTINE 14MG/24HR PATCH TRANSDERM SCH (07:54)
[2023-02-27] MEDS: INSULIN ASPART (NovoLOG) 100 UNIT/ML VIAL SQ SCH ×4 (07:54→19:59)
[2023-02-27] MEDS: ATORVASTATIN 20 MG TAB PO SCH (07:54)
[2023-02-27] MEDS: metFORMIN 500 MG TAB PO SCH ×2 (07:55→19:59)
[2023-02-27] MEDS: amLODIPine 10 MG TAB PO SCH (07:55)
[2023-02-27] MEDS: GLIMEPIRIDE 4 MG TAB PO SCH (07:55)
--- NOTE | 2023-02-27 10:31 | P.PN ---
Progress Note - Text Progress Note Date: 02/27/23 S&O: Patient was seen in rounds. He said he slept about 5 hours last night and still feels kind of sleepy this morning. He was started on Saphris 5 mg at bedtime yesterday his stated of Seroquel. He did not have any problem with restless legs last night. He said the sublingual Saphris has a bitter taste and asked if he could get the tablet. He was counseled that it comes only in sublingual form in this hospital. No other issues. He also made a remark why he wakes up in the morning history of having a stroke or heart attack and in his sleep. But when he said that he did not have the affect to go along with this kind of thought. No other issues. He attends to groups and socializes with some patients and staff. This is a white ambulatory male with adequate hygiene. He is still unshaven and his hair is poorly combed. He does not show any psychomotor agitation or retardation. Speech is spontaneous relevant and goal-directed. Mood is euthymic to somewhat cheerful and affect is appropriate except when he questioned why he wakes up in the morning as noted above. Continues to deny hallucinations, delusional thinking, serious intention of hurting himself or others. Sensorium is clear. A&P: Continue Saphris 5 mg at bedtime, groups and other therapies.
[2023-02-27 12:42] LABS: Glucose,Whole Blood 120 mg/dL (70-110)
[2023-02-27 17:42] LABS: Glucose,Whole Blood 154 mg/dL (70-110)
[2023-02-27 19:56] LABS: Glucose,Whole Blood 188 mg/dL (70-110)
[2023-02-27] MEDS: INSULIN DETEMIR (LEVEMIR) 100 UNIT/ML SYR SQ SCH (19:59)
[2023-02-27] MEDS: ASENAPINE 5 MG TAB SUBLINGUAL SCH (19:59)
[2023-02-28 07:53] LABS: Glucose,Whole Blood 149 mg/dL (70-110)
[2023-02-28] MEDS: NICOTINE 14MG/24HR PATCH TRANSDERM SCH (07:55)
[2023-02-28] MEDS: metFORMIN 500 MG TAB PO SCH (07:55)
[2023-02-28] MEDS: lisinopriL 10 MG TAB PO SCH (07:56)
[2023-02-28] MEDS: INSULIN ASPART (NovoLOG) 100 UNIT/ML VIAL SQ SCH (07:56)
[2023-02-28] MEDS: amLODIPine 10 MG TAB PO SCH (07:56)
[2023-02-28] MEDS: ATORVASTATIN 20 MG TAB PO SCH (07:56)
--- NOTE | 2023-02-28 09:22 | P.DS ---
Providers Date of admission: 02/22/23 02:11 Expected date of discharge: 02/28/23 Attending physician: Tarun Santiago MD Consults: 02/22/23 02:22 Consult Physician Routine Consulting Provider: Nanci Mosqueda Consult Reason/Comments: medical H &P Do you want consulting provider notified?: Yes Primary care physician: Stated None - Discharge Diagnosis(es) (1) Adjustment disorder with mixed disturbance of emotions and conduct Current Visit: Yes Status: Acute Priority: High Hospital Course: Patient had his psychiatric H&P done by Dr. Tarun Santiago and general physical examination done by Dr. David Galindo on 02/22/2023. After psychiatric H&P Dr. Santiago started him on Zoloft 50 mg a day and Seroquel 100 mg at bedtime with when necessary medications and routine other orders. He was continued on his general medical medications for his pre-existing condition by Dr. Galindo. Patient was attending some of the groups and socializing with some staff and patients. When I saw him on of this month he reported that his nightmares have become worse since he went on Seroquel. He was counseled about it and he agreed to try Saphris 5 mg at bedtime. It was also agreed to discontinue Zoloft since it takes a very long time for tall if it works and has been taking Seroquel which is also an antidepressant. With the change of Seroquel and starting on Saphris patient did not have any nightmares or restless leg syndrome. He was able to sleep at least 6 hours uninterruptedly. He denies any adverse effects from Saphris. His condition was discussed by the treatment team yesterday and it was agreed to discharge him silently today back to detention. Patient was advised to comply with his medication and seek counseling to improve his coping skills. Mental status examination: This is a right ambulatory male with good hygiene. He does not show any psychomotor agitation or retardation. His speech is spontaneous and tends to be over inclusive. But it is goal-directed. Mood is fairly cheerful and affect is appropriate to the thought content. He continues to deny hallucinations delusional thinking suicide and homicide thoughts. His sensorium is clear. Assessment: Please see mental status examination report under hospital course above Health Concerns: COPD, diabetes mellitus, hypertension. Pertinent Studies: None Procedures: None Patient Condition at Discharge: Stable Plan - Discharge Summary New Discharge Prescriptions: New Magnesium Hydroxide [Milk of Magnesia Concentrate] 2,400 mg PO DAILY PRN ml PRN Reason: Constipation Acetaminophen Tab [Tylenol] 650 mg PO Q4HR PRN tab PRN Reason: Pain/Discomfort Mag Hydrox/Al Hydrox/Simeth [Maalox] 30 ml PO Q4HR PRN ml PRN Reason: Gi Upset Asenapine [Saphris] 5 mg SUBLINGUAL HS 30 Days #30 tab Continue Glimepiride [Amaryl] 4 mg PO DAILY 30 Days #30 tab Ergocalciferol (Vitamin D2) [Drisdol (50,000 Iu)] 1,250 mcg PO LOPEZ 30 Days #30 cap Insulin Glargine,Hum.rec.anlog [Lantus Solostar Pen] 20 units SQ HS 30 Days #60 each Atorvastatin [Lipitor] 20 mg PO DAILY 30 Days #30 tab metFORMIN HCL 1,000 mg PO BID 30 Days #60 tab amLODIPine [Norvasc] 10 mg PO DAILY 30 Days #30 tab Albuterol Inhaler [Ventolin Hfa Inhaler] 2 puff INHALATION RT-Q6H PRN 30 Days #1 each PRN Reason: Shortness Of Breath lisinopriL 30 mg PO DAILY 30 Days #30 tab Discharge Medication List Acetaminophen Tab [Tylenol] 650 mg PO Q4HR PRN tab 02/28/23 [Rx] Albuterol Inhaler [Ventolin Hfa Inhaler] 2 puff INHALATION RT-Q6H PRN 30 Days #1 each 02/28/23 [Rx] Asenapine [Saphris] 5 mg SUBLINGUAL HS 30 Days #30 tab 02/28/23 [Rx] Atorvastatin [Lipitor] 20 mg PO DAILY 30 Days #30 tab 02/28/23 [Rx] Ergocalciferol (Vitamin D2) [Drisdol (50,000 Iu)] 1,250 mcg PO LOPEZ 30 Days #30 cap 02/28/23 [Rx] Glimepiride [Amaryl] 4 mg PO DAILY 30 Days #30 tab 02/28/23 [Rx] Insulin Glargine,Hum.rec.anlog [Lantus Solostar Pen] 20 units SQ HS 30 Days #60 each 02/28/23 [Rx] Mag Hydrox/Al Hydrox/Simeth [Maalox] 30 ml PO Q4HR PRN ml 02/28/23 [Rx] Magnesium Hydroxide [Milk of Magnesia Concentrate] 2,400 mg PO DAILY PRN ml 02/28/23 [Rx] amLODIPine [Norvasc] 10 mg PO DAILY 30 Days #30 tab 02/28/23 [Rx] lisinopriL 30 mg PO DAILY 30 Days #30 tab 02/28/23 [Rx] metFORMIN HCL 1,000 mg PO BID 30 Days #60 tab 02/28/23 [Rx] Follow up Appointment(s)/Referral(s): None,Stated [Primary Care Provider] - 1-2 days
[2023-02-28] MEDS: GLIMEPIRIDE 4 MG TAB PO SCH (09:23)
== END 2023-02-28 11:40 | disposition still patient (30) | DRG 817 ==
LOC: EC 12:27 → 3MHU 02-22 02:11
PROVIDERS: ADMIT Psychiatry & Neurology Psychiatry; ATTEND Psychiatry & Neurology Psychiatry
DX: T71.162A Asphyxiation due to hanging, intentional self-harm, initial encounter (principal); E11.65 Type 2 diabetes mellitus with hyperglycemia; I10 Essential (primary) hypertension; F43.25 Adjustment disorder with mixed disturbance of emotions and conduct; E87.6 Hypokalemia; F17.210 Nicotine dependence, cigarettes, uncomplicated; F10.91 Alcohol use, unspecified, in remission; F43.10 Post-traumatic stress disorder, unspecified; F41.9 Anxiety disorder, unspecified; F60.89 Other specific personality disorders; E78.5 Hyperlipidemia, unspecified; Y90.0 Blood alcohol level of less than 20 mg/100 ml; Z20.822 Contact with and (suspected) exposure to COVID-19; Z28.310 Unvaccinated for COVID-19; X83.8XXA Intentional self-harm by other specified means, initial encounter; Z88.8 Allergy status to other drugs, medicaments and biological substances; Z79.899 Other long term (current) drug therapy; Z79.84 Long term (current) use of oral hypoglycemic drugs; Z79.4 Long term (current) use of insulin; Z91.51 Personal history of suicidal behavior; Z56.0 Unemployment, unspecified; Z63.0 Problems in relationship with spouse or partner; Z91.410 Personal history of adult physical and sexual abuse; Z59.00 Homelessness unspecified; Z59.89 Other problems related to housing and economic circumstances
CPT/HCPCS: 36415; 70360; 71046; 80053; 80306; 80320; 82075; 82550; 83036; 84439; 84443; 85025; 87635; 99285